=== PATIENT | female | born 1980 | race African-American/Black ===

== ENCOUNTER 2016-11-09 10:04 | Outpatient (CLI) | payer MEDICARE | END 2016-11-09 10:05 | disposition home or self-care (01) | LOC: MADLABBHPM 10:04 | PROVIDERS: ATTEND Family Medicine | DX: O09.521 Supervision of elderly multigravida, first trimester (principal) ==

== ENCOUNTER 2016-11-18 02:40 | Emergency (ER) | payer MEDICARE ==
[2016-11-18] MEDS ORDERED: Ondansetron ODT 4 MG TAB ONE (02:55)
[2016-11-18] MEDS ORDERED: Acetaminophen/Codeine 30-300mg Tablet ONE (03:20)
[2016-11-18 03:31] LABS: Bilirubin Negative (Negative); Blood, Urine Negative (Negative); Clarity Slightly Cloudy (Clear); Glucose, Urine (Dipstick) Negative (Negative); Leukocyte Trace (Negative); Nitrite Negative (Negative); Protein, Urine (Dipstick) Negative (Neg-Trace); Urobilinogen 0.2 mg/dL (0.2-1.0); pH, Urine 6.5 (5.0-9.0)
[2016-11-18 03:36] LABS: Specific Gravity, Urine 1.031 (1.002-1.036)
[2016-11-18 03:42] LABS: Bacteria/HPF 3+ HPF (None Seen); RBC/HPF 0-3 HPF (0-3); Renal Epithelial 0-3 HPF (0-3); Transitional Epithelial 0-3 HPF (0-3); WBC/HPF 21-50 HPF (0-3); Yeast-All Forms 1+ HPF (None Seen)
[2016-11-18 03:43] LABS: #Basophils 0.1 thou/uL (0.0-0.2); #Eosinphils 0.1 thou/uL (0.0-0.7); #Lymphocytes 2.5 thou/uL (1.20-3.40); #Monocytes 0.4 thou/uL (0.11-0.59); #Neutrophils 3.7 thou/uL (1.40-6.50); %Basophils 0.8 % (0.0-1.0); %Eosinophils 1.1 % (0.0-10.0); %Monocytes 6.1 % (0.0-10.0); %Neutrophils 54.9 % (42.0-75.0); Hemoglobin 12.7 g/dL (12.0-16.0); Mean Corpuscular HGB CONC 35.1 g/dL (32.0-36.0); Mean Corpuscular Volume 85.4 fl (81.0-99.0); Platelet Count 185 thou/uL (130-400); RBC Distribution Width 11.7 % (11.5-14.5); Red Blood Cell (RBC) Count 4.23 mill/uL (4.20-5.40); White Blood Cell (WBC) Count 6.7 thou/uL (4.8-10.8)
[2016-11-18 03:47] LABS: ALT (SGPT) 23 U/L (0-55); AST (SGOT) 12 U/L (5-34); Albumin 3.3 g/dL (3.5-5.0); Alkaline Phosphatase 48 U/L (40-150); Anion Gap 13 mmol/L (10-20); BUN (Urea Nitrogen) 9 mg/dL (7.0-18.7); Bilirubin, Total Less than 0.3 mg/dL (0.2-1.2); Calc. Creatinine Clearance 0 mL/min (70-130); Calcium 9.2 mg/dL (7.8-10.44); Carbon Dioxide 21 mmol/L (22-29); Chloride 106 mmol/L (98-107); Estimated GFR-MDRD Greater than 90; Globulin 3.1 g/dL (2.4-3.5); Glucose 101 mg/dL (70-105); Potassium 3.8 mmol/L (3.5-5.1); Protein, Total 6.4 g/dL (6.0-8.3); Sodium 136 mmol/L (136-145)
[2016-11-18] MEDS ORDERED: Nitrofurantoin Monohyd/M-Cryst 100 MG CAP ONE (04:00)
== END 2016-11-18 04:09 | disposition home or self-care (01) ==
LOC: MADERS 02:40
DX: O23.42 Unspecified infection of urinary tract in pregnancy, second trimester (principal); O99.332 Smoking (tobacco) complicating pregnancy, second trimester; Z3A.14 14 weeks gestation of pregnancy
CPT/HCPCS: 36415; 80053; 81003; 81015; 84702; 85025; 87086; 87430; 99284; Q0162

== ENCOUNTER 2017-03-10 08:47 | Emergency (ER) | payer MEDICARE ==
[2017-03-10] MEDS ORDERED: Ondansetron HCl/PF 4 MG/2 ML Vial ONE (09:06)
[2017-03-10 09:14] LABS: #Lymphocytes 2.6 thou/uL (1.20-3.40); #Monocytes 0.4 thou/uL (0.11-0.59); #Neutrophils 4.7 thou/uL (1.40-6.50); %Basophils 0.5 % (0.0-1.0); %Eosinophils 0.6 % (0.0-10.0); %Lymphocytes 33.4 % (21.0-51.0); %Monocytes 4.8 % (0.0-10.0); %Neutrophils 60.7 % (42.0-75.0); Hemoglobin 11.5 g/dL (12.0-16.0); Mean Corpuscular HGB CONC 32.9 g/dL (32.0-36.0); Mean Corpuscular Hemoglobin 27.4 pg (27.0-31.0); Mean Corpuscular Volume 83.4 fl (81.0-99.0); Mean Platelet Volume 10.6 fL (7.4-10.4); Platelet Count 195 thou/uL (130-400); RBC Distribution Width 12.4 % (11.5-14.5); Red Blood Cell (RBC) Count 4.21 mill/uL (4.20-5.40); White Blood Cell (WBC) Count 7.8 thou/uL (4.8-10.8)
[2017-03-10] MEDS ORDERED: Metoclopramide HCl 10 MG/2 ML VIAL ONE (09:24)
[2017-03-10 09:38] LABS: ALT (SGPT) 19 U/L (8-55); AST (SGOT) 12 U/L (5-34); Albumin 3.2 g/dL (3.5-5.0); Alkaline Phosphatase 73 U/L (40-150); Anion Gap 14 mmol/L (10-20); BUN (Urea Nitrogen) 11 mg/dL (7.0-18.7); Bilirubin, Total Less than 0.3 mg/dL (0.2-1.2); Calc. Creatinine Clearance 0 mL/min (70-130); Calcium 8.8 mg/dL (7.8-10.44); Carbon Dioxide 19 mmol/L (22-29); Chloride 110 mmol/L (98-107); Estimated GFR-MDRD Greater than 90; Globulin 3.5 g/dL (2.4-3.5); Glucose 87 mg/dL (70-105); Protein, Total 6.7 g/dL (6.0-8.3); Sodium 139 mmol/L (136-145)
[2017-03-10] MEDS ORDERED: Sodium Chloride 0.9% 1,000 ML BAG ONE (10:16)
== END 2017-03-10 10:16 | disposition short-term general hospital (02) ==
LOC: MADERS 08:47
DX: O09.523 Supervision of elderly multigravida, third trimester (principal); O99.89 Other specified diseases and conditions complicating pregnancy, childbirth and the puerperium; R10.10 Upper abdominal pain, unspecified; Z3A.30 30 weeks gestation of pregnancy; Z79.899 Other long term (current) drug therapy
CPT/HCPCS: 36416; 80053; 85025; 85379; 93005; 96374; 96375; 36415-59; J2405; J2765; J7050

== ENCOUNTER 2017-04-12 14:11 | Outpatient (CLI) | payer MEDICARE | END 2017-04-12 14:12 | LOC: MADLABBHPM 14:11 | PROVIDERS: ATTEND Family Medicine | DX: O09.523 Supervision of elderly multigravida, third trimester (principal) | CPT/HCPCS: 36415; 87081; 87086 ==

== ENCOUNTER 2017-05-30 17:43 | Emergency (ER) | payer MEDICARE, OTHER ==
[2017-05-30] MEDS ORDERED: Ondansetron ODT 4 MG TAB ONE (18:07)
[2017-05-30] MEDS ORDERED: Morphine Sulfate 2 MG/ML SYRINGE ONE (18:07)
[2017-05-30] MEDS ORDERED: Cephalexin 500 MG CAP ONE (18:07)
[2017-05-30] MEDS ORDERED: Sulfameth/Trimethoprim DS 800-160mg TAB ONE (18:07)
== END 2017-05-30 18:35 | disposition home or self-care (01) ==
LOC: MADERS 17:43
DX: O90.89 Other complications of the puerperium, not elsewhere classified (principal); G89.18 Other acute postprocedural pain; O99.335 Smoking (tobacco) complicating the puerperium; F17.210 Nicotine dependence, cigarettes, uncomplicated
CPT/HCPCS: 96372; J2270; Q0162

== ENCOUNTER 2017-07-09 08:54 | Emergency (ER) | payer MEDICARE, OTHER ==
[2017-07-09] MEDS ORDERED: Oseltamivir 75 MG CAP ONE (09:32)
[2017-07-09] MEDS ORDERED: Ondansetron ODT 4 MG TAB ONE (09:32)
[2017-07-09] MEDS ORDERED: cefTRIAXone\\ROCEPHIN 1 GM VIAL ONE (09:32)
[2017-07-09] MEDS ORDERED: Lidocaine 1% 20 ML MDV ONE (09:32)
[2017-07-09] MEDS ORDERED: Ketorolac Tromethamine 60 MG/2 ML VIAL ONE (09:34)
[2017-07-09] MEDS ORDERED: Acetaminophen 500 MG TAB ONE (10:19)
[2017-07-09 10:22] LABS: Pregnancy Test - Urine (BHCG) Negative (Negative); Pregu Control Background? CLEAR/WHITE (CLR/WHITE); Pregu Control Bar Appear? YES (CONTROL BAR)
== END 2017-07-09 11:50 | disposition home or self-care (01) ==
LOC: MADERS 08:54
DX: J02.9 Acute pharyngitis, unspecified (principal)
CPT/HCPCS: 81025; 87430; 96372; J0696; J1885; J2001; Q0162

== ENCOUNTER 2018-03-04 23:03 | Emergency (ER) | payer MEDICARE, OTHER ==
[2018-03-05] MEDS ORDERED: Ondansetron ODT 4 MG TAB ONE (00:03)
[2018-03-05 00:17] LABS: Bilirubin Small (Negative); Blood, Urine Negative (Negative); Clarity Cloudy (Clear); Glucose, Urine (Dipstick) Negative (Negative); Leukocyte Trace (Negative); Nitrite Negative (Negative); Protein, Urine (Dipstick) 100 mg/dL (Neg-Trace); Urobilinogen 0.2 mg/dL (0.2-1.0)
[2018-03-05 00:32] LABS: Bacteria/HPF 2+ HPF (None Seen); RBC/HPF 0-3 HPF (0-3); Specific Gravity, Urine 1.033 (1.002-1.036); WBC/HPF 21-50 HPF (0-3)
[2018-03-05] MEDS ORDERED: Nitrofurantoin Monohyd/M-Cryst 100 MG CAP ONE (00:49)
[2018-03-05] MEDS ORDERED: Meclizine HCl 25 MG TAB ONE (00:49)
== END 2018-03-05 00:55 | disposition home or self-care (01) ==
LOC: MADERS 23:03
DX: O23.43 Unspecified infection of urinary tract in pregnancy, third trimester (principal); Z3A.30 30 weeks gestation of pregnancy
CPT/HCPCS: 81001; 87086; 99284; Q0162

== ENCOUNTER 2018-03-28 07:35 | Outpatient (CLI) | payer MEDICARE, OTHER | END 2018-03-28 07:36 | disposition home or self-care (01) | LOC: MADLABBHPM 07:35 | PROVIDERS: ATTEND Family Medicine | DX: O09.523 Supervision of elderly multigravida, third trimester (principal) | CPT/HCPCS: 36415; 82951; 82952 ==

== ENCOUNTER 2018-04-16 18:16 | Emergency (ER) | payer MEDICARE, OTHER ==
[2018-04-16] MEDS ORDERED: Acetaminophen 500 MG TAB ONE (19:21)
== END 2018-04-16 19:33 | disposition home or self-care (01) ==
LOC: MADERS 18:16
DX: O99.89 Other specified diseases and conditions complicating pregnancy, childbirth and the puerperium (principal); M54.2 Cervicalgia; Z3A.35 35 weeks gestation of pregnancy; V43.62XA Car passenger injured in collision with other type car in traffic accident, initial encounter
CPT/HCPCS: 99283

== ENCOUNTER 2018-07-28 19:26 | Emergency (ER) | payer MEDICARE, OTHER ==
[2018-07-28] MEDS ORDERED: Ibuprofen 800 MG TAB ONE (19:56)
[2018-07-28] MEDS ORDERED: HYDROcodone/Acetaminophen 10/325 mg Tablet ONE (19:56)
== END 2018-07-28 19:57 | disposition home or self-care (01) ==
LOC: MADERS 19:26
DX: T63.441A Toxic effect of venom of bees, accidental (unintentional), initial encounter (principal); F17.210 Nicotine dependence, cigarettes, uncomplicated
CPT/HCPCS: 99282

== ENCOUNTER 2018-09-28 23:53 | Emergency (ER) | payer OTHER ==
[2018-09-29] MEDS ORDERED: Ibuprofen 800 MG TAB ONE (00:27)
== END 2018-09-29 01:19 | disposition home or self-care (01) ==
LOC: MADERS 23:53
DX: B34.9 Viral infection, unspecified (principal); Z71.6 Tobacco abuse counseling; F17.210 Nicotine dependence, cigarettes, uncomplicated; Z79.899 Other long term (current) drug therapy
CPT/HCPCS: 87804; 99406

== ENCOUNTER 2018-11-04 17:31 | Emergency (ER) | payer MEDICARE, OTHER | END 2018-11-04 18:22 | disposition home or self-care (01) | LOC: MADERS 17:31 | DX: J06.9 Acute upper respiratory infection, unspecified (principal); B34.9 Viral infection, unspecified; F17.210 Nicotine dependence, cigarettes, uncomplicated | CPT/HCPCS: 99283 ==

== ENCOUNTER 2018-12-31 19:36 | Emergency (ER) | payer OTHER | END 2018-12-31 20:54 | disposition left against medical advice (07) | LOC: MADERS 19:36 | DX: Z53.21 Procedure and treatment not carried out due to patient leaving prior to being seen by health care provider (principal) ==

== ENCOUNTER 2019-01-21 15:52 | Emergency (ER) | payer OTHER | END 2019-01-21 16:35 | disposition home or self-care (01) | LOC: MADERS 15:52 | DX: K04.7 Periapical abscess without sinus (principal); K02.9 Dental caries, unspecified | CPT/HCPCS: 99282 ==

== ENCOUNTER 2019-04-07 11:27 | Emergency (ER) | payer MEDICARE, OTHER ==
[2019-04-07] MEDS ORDERED: Ketorolac Tromethamine 60 MG/2 ML VIAL ONE (12:09)
== END 2019-04-07 12:25 | disposition home or self-care (01) ==
LOC: MADERS 11:27
DX: K02.9 Dental caries, unspecified (principal); F17.210 Nicotine dependence, cigarettes, uncomplicated
CPT/HCPCS: 96372; 99282; J1885

== ENCOUNTER 2019-06-18 22:22 | Emergency (ER) | payer MEDICARE, OTHER ==
[2019-06-18] MEDS ORDERED: predniSONE 20 MG TAB ONE (23:12)
== END 2019-06-18 23:20 | disposition home or self-care (01) ==
LOC: MADERS 22:22
DX: J06.9 Acute upper respiratory infection, unspecified (principal)
CPT/HCPCS: J7512; J7620

== ENCOUNTER 2019-07-12 08:39 | Emergency (ER) | payer MEDICARE, OTHER ==
[2019-07-12] MEDS ORDERED: Acetaminophen 500 MG TAB ONE (09:09)
[2019-07-12] MEDS ORDERED: Penicillin V Potassium 250 MG TAB ONE (09:09)
== END 2019-07-12 09:10 | disposition home or self-care (01) ==
LOC: MADERS 08:39
DX: K02.9 Dental caries, unspecified (principal); F17.210 Nicotine dependence, cigarettes, uncomplicated
CPT/HCPCS: 99406

== ENCOUNTER 2019-10-28 17:40 | Emergency (ER) | payer MEDICARE, OTHER ==
[2019-10-28] MEDS ORDERED: Dexamethasone 4 MG TAB ONE (19:12)
== END 2019-10-28 19:17 | disposition home or self-care (01) ==
LOC: MADERS 17:40
DX: J02.9 Acute pharyngitis, unspecified (principal); F17.210 Nicotine dependence, cigarettes, uncomplicated
CPT/HCPCS: 99282; J8540

== ENCOUNTER 2019-11-03 02:23 | Emergency (ER) | payer MEDICARE, OTHER ==
[2019-11-03] MEDS ORDERED: Bicillin LA 1.2 MILLION UNITS/2 ML SYRINGE ONE (03:10)
== END 2019-11-03 03:33 | disposition home or self-care (01) ==
LOC: MADERS 02:23
DX: J02.9 Acute pharyngitis, unspecified (principal); F17.210 Nicotine dependence, cigarettes, uncomplicated
CPT/HCPCS: 87081; 87430; 87804; 96372; 99283; J0561

== ENCOUNTER 2019-12-18 15:39 | Emergency (ER) | payer MEDICARE, OTHER ==
[2019-12-18 16:03] LABS: Bilirubin Negative (Negative); Blood, Urine Large (Negative); Clarity Slightly Cloudy (Clear); Glucose, Urine (Dipstick) Negative (Negative); Leukocyte Moderate (Negative); Nitrite Negative (Negative); Protein, Urine (Dipstick) 100 mg/dL (Neg-Trace); Urobilinogen 0.2 mg/dL (Less than 2)
[2019-12-18 16:10] LABS: Bacteria/HPF 2+ HPF (None Seen); RBC/HPF Greater than 50 HPF (0-3); WBC/HPF Greater than 50 HPF (0-3)
== END 2019-12-18 16:17 | disposition home or self-care (01) ==
LOC: MADERS 15:39
DX: N30.00 Acute cystitis without hematuria (principal); F17.210 Nicotine dependence, cigarettes, uncomplicated
CPT/HCPCS: 81003; 81015; 99283

== ENCOUNTER 2020-08-08 16:18 | Emergency (ER) | payer MEDICARE, OTHER ==
[2020-08-08] MEDS ORDERED: Bupivacaine HCl 0.5%/Epinephrine 1:200,000/PF 30 ml Vial ONE (16:33)
[2020-08-08] MEDS ORDERED: Amoxicillin/Potassium Clav 875 MG TAB ONE (16:34)
== END 2020-08-08 16:54 | disposition home or self-care (01) ==
LOC: MADERS 16:18
DX: K08.89 Other specified disorders of teeth and supporting structures (principal); F17.210 Nicotine dependence, cigarettes, uncomplicated; R22.0 Localized swelling, mass and lump, head
CPT/HCPCS: 64400

== ENCOUNTER 2020-08-28 07:58 | Emergency (ER) | payer MEDICARE, OTHER ==
[2020-08-28 08:37] LABS: Bilirubin Negative (Negative); Blood, Urine Large (Negative); Clarity Cloudy (Clear); Glucose, Urine (Dipstick) Negative (Negative); Ketone, Urine Negative (Negative); Leukocyte Small (Negative); Nitrite Negative (Negative); Pregnancy Test - Urine (BHCG) Negative (Negative); Pregu Control Background? CLEAR/WHITE (CLR/WHITE); Pregu Control Bar Appear? YES (CONTROL BAR); Protein, Urine (Dipstick) 100 mg/dL (Neg-Trace); Specific Gravity 1.025 (1.002-1.036); Specific Gravity, Urine 1.025 (1.005-1.030); Urobilinogen 0.2 mg/dL (Less than 2); pH, Urine 6.5 (5.0-9.0)
[2020-08-28 09:01] LABS: Bacteria/HPF 2+ HPF (None Seen); RBC/HPF Greater than 50 HPF (0-3); WBC/HPF Greater Than 50 HPF (0-3)
== END 2020-08-28 09:00 | disposition home or self-care (01) ==
LOC: MADERS 07:58
DX: N39.0 Urinary tract infection, site not specified (principal); I10 Essential (primary) hypertension; F17.210 Nicotine dependence, cigarettes, uncomplicated; Z71.6 Tobacco abuse counseling
CPT/HCPCS: 81003; 81015; 81025; 99406

== ENCOUNTER 2020-10-05 13:35 | Outpatient (CLI) | payer MEDICARE, OTHER | END 2020-10-05 13:36 | disposition home or self-care (01) | LOC: MADLAB 13:35 | PROVIDERS: ATTEND Family Medicine | DX: Z23 Encounter for immunization (principal) | CPT/HCPCS: 87086 ==

== ENCOUNTER 2021-04-16 19:42 | Emergency (ER) | payer MEDICARE, OTHER ==
[2021-04-16 20:37] LABS: Eosinophils 3 % (0-10); Hemoglobin 12.2 g/dL (12.0-16.0); Lymphocytes 60 % (21-51); MDiff Complete? YES; Mean Corpuscular HGB CONC 32.5 g/dL (32.0-36.0); Mean Corpuscular Hemoglobin 29.2 pg (27.0-31.0); Mean Corpuscular Volume 89.8 fL (78.0-98.0); Monocytes 5 % (0-10); Neutrophil 30 % (42-75); Platelet Count 207 thou/uL (130-400); Platelet Morphology Comment Appears Adequate; RBC Distribution Width 13.7 % (11.5-14.5); RBC Morphology Normal; Reactive Lymphocytes 2 % (0-10); Red Blood Cell (RBC) Count 4.19 mill/uL (4.20-5.40)
[2021-04-16 20:41] LABS: ALT (SGPT) 44 U/L (8-55); AST (SGOT) 30 U/L (5-34); Albumin 3.3 g/dL (3.5-5.0); Alkaline Phosphatase 63 U/L (40-110); Anion Gap 13 mmol/L (10-20); BUN (Urea Nitrogen) 17 mg/dL (7.0-18.7); Bilirubin, Total 0.2 mg/dL (0.2-1.2); Calc. Creatinine Clearance 0 mL/min (70-130); Calcium 8.8 mg/dL (7.8-10.44); Carbon Dioxide 22 mmol/L (22-29); Chloride 110 mmol/L (98-107); Globulin 3.2 g/dL (2.4-3.5); Glucose 107 mg/dL (70-105); Potassium 3.7 mmol/L (3.5-5.1); Protein, Total 6.5 g/dL (6.0-8.3); Sodium 141 mmol/L (136-145)
== END 2021-04-16 20:56 | disposition home or self-care (01) ==
LOC: MADERS 19:42
DX: I89.0 Lymphedema, not elsewhere classified (principal); F17.210 Nicotine dependence, cigarettes, uncomplicated; Z71.6 Tobacco abuse counseling
CPT/HCPCS: 36415; 80053; 83880; 84484; 85025; 99283

== ENCOUNTER 2021-07-02 05:33 | Emergency (ER) | payer MEDICARE, MEDICAID ==
[2021-07-02] MEDS ORDERED: HYDROcodone/Acetaminophen 5/325 mg Tablet ONE (06:36)
[2021-07-02] MEDS ORDERED: Acetaminophen 325 MG TAB ONE (06:37)
[2021-07-02] MEDS ORDERED: Ketorolac Tromethamine 60 MG/2 ML VIAL ONE (06:37)
[2021-07-02] MEDS ORDERED: Dexamethasone 4 MG TAB ONE (06:37)
== END 2021-07-02 07:00 | disposition home or self-care (01) ==
LOC: MADERS 05:33
DX: S90.32XA Contusion of left foot, initial encounter (principal); F17.210 Nicotine dependence, cigarettes, uncomplicated; X58.XXXA Exposure to other specified factors, initial encounter
CPT/HCPCS: J1885; J8540

== ENCOUNTER 2022-11-01 13:32 | Emergency (ER) | payer OTHER | END 2022-11-01 14:46 | disposition home or self-care (01) | LOC: MADERS 13:32 | DX: J06.9 Acute upper respiratory infection, unspecified (principal); F17.210 Nicotine dependence, cigarettes, uncomplicated; Z20.822 Contact with and (suspected) exposure to COVID-19 | CPT/HCPCS: 87804; 99283; U0003; U0005 ==

== ENCOUNTER 2023-04-22 13:05 | Emergency (ER) | payer OTHER ==
[2023-04-22] MEDS ORDERED: Ibuprofen 600 MG TAB ONE (14:11)
[2023-04-22] MEDS ORDERED: Sulfameth/Trimethoprim DS 800-160mg TAB ONE (14:11)
== END 2023-04-22 14:18 | disposition home or self-care (01) ==
LOC: MADERS 13:05
DX: S90.561A Insect bite (nonvenomous), right ankle, initial encounter (principal); L08.9 Local infection of the skin and subcutaneous tissue, unspecified; W57.XXXA Bitten or stung by nonvenomous insect and other nonvenomous arthropods, initial encounter; Z87.891 Personal history of nicotine dependence
CPT/HCPCS: 99281

== ENCOUNTER 2023-09-15 17:56 | Emergency (ER) | payer OTHER ==
[2023-09-15 18:39] LABS: #Basophils 0.1 thou/uL (0.0-0.2); #Eosinphils 0.2 thou/uL (0.0-0.7); #Lymphocytes 2.3 thou/uL (1.20-3.40); #Monocytes 0.4 thou/uL (0.11-0.59); #Neutrophils 1.9 thou/uL (1.40-6.50); %Basophils 1.3 % (0.0-1.0); %Lymphocytes 47.8 % (21.0-51.0); %Monocytes 7.6 % (0.0-10.0); %Neutrophils 38.3 % (42.0-75.0); Hematocrit 39.2 % (36.0-47.0); Hemoglobin 12.4 g/dL (12.0-16.0); Mean Corpuscular HGB CONC 31.5 g/dL (32.0-36.0); Mean Corpuscular Hemoglobin 28.4 pg (27.0-31.0); Mean Platelet Volume 10.7 fL (7.4-10.4); Platelet Count 196 10x3/uL (130-400); RBC Distribution Width 13.6 % (11.5-14.5); Red Blood Cell (RBC) Count 4.35 mill/uL (4.20-5.40); White Blood Cell (WBC) Count 4.9 10x3/uL (4.8-10.8)
[2023-09-15 18:52] LABS: BHCG - Serum Negative (NEGATIVE); Pregs Control Background? CLEAR/WHITE (CLR/WHITE); Pregs Control Bar Appear? YES (CONTROL BAR)
[2023-09-15 18:53] LABS: ALT (SGPT) 11 U/L (8-55); AST (SGOT) 9 U/L (5-34); Albumin 3.5 g/dL (3.5-5.0); Alkaline Phosphatase 81 U/L (40-110); Anion Gap 13 mmol/L (10-20); BUN (Urea Nitrogen) 19 mg/dL (7.0-18.7); Bilirubin, Total 0.2 mg/dL (0.2-1.2); Calc. Creatinine Clearance 0 mL/min (70-130); Calcium 8.7 mg/dL (7.8-10.44); Carbon Dioxide 24 mmol/L (22-29); Chloride 107 mmol/L (98-107); Estimated GFR 102; Globulin 2.8 g/dL (2.4-3.5); Glucose 96 mg/dL (70-105); Potassium 3.9 mmol/L (3.5-5.1); Protein, Total 6.3 g/dL (6.0-8.3); Sodium 140 mmol/L (136-145); Troponin I Less than 0.010 ng/mL (< 0.028)
[2023-09-15] MEDS ORDERED: Aspirin Chewable 81 MG TAB ONE (18:56)
[2023-09-15] MEDS ORDERED: Nitroglycerin 0.4 MG TAB 1 EACH ONE (18:56)
[2023-09-15 22:21] LABS: Troponin I Less than 0.010 ng/mL (< 0.028)
== END 2023-09-15 22:37 | disposition home or self-care (01) ==
LOC: MADERS 17:56
DX: R07.9 Chest pain, unspecified (principal); Z87.891 Personal history of nicotine dependence
CPT/HCPCS: 71046; 80053; 84484; 84703; 85025; 87635; 87804; 93005; 94760

== ENCOUNTER 2023-10-27 05:13 | Emergency (ER) | payer OTHER ==
[2023-10-27] MEDS ORDERED: Bupivacaine PF 0.5% 30 ML VIAL ONE (06:06)
[2023-10-27] MEDS ORDERED: Amoxicillin/Potassium Clav 875 MG TAB ONE (06:06)
[2023-10-27] MEDS ORDERED: Lidocaine 1% w/Epinephrine 1:100K 20 ML VIAL ONE (06:06)
== END 2023-10-27 06:57 | disposition home or self-care (01) ==
LOC: MADERS 05:13
DX: K02.9 Dental caries, unspecified (principal); Z87.891 Personal history of nicotine dependence
CPT/HCPCS: 99282; J0665

== ENCOUNTER 2025-08-28 09:10 | Emergency (ER) | payer MEDICARE, OTHER | END 2025-08-28 10:43 | disposition home or self-care (01) | LOC: MADERS 09:10 | DX: M25.511 Pain in right shoulder (principal); E66.9 Obesity, unspecified | CPT/HCPCS: 99283 ==